=== PATIENT | male | born 1955 | race Caucasian/White ===

== ENCOUNTER 2019-04-04 10:33 | Inpatient (IN) | payer OTHER, MEDICARE ==
[~2019-04-04] VITALS: Ht 185.4 cm; Wt 66.4 kg
[2019-04-04] VITALS (7 sets, daily range): BP systolic 82–103; BP diastolic 50–67
[2019-04-04] MEDS ORDERED: NS IV 1000 ML 1,000 ML ONE (10:38)
[2019-04-04] MEDS ORDERED: NS IV 1000 ML 1,000 ML IV ONE ×3 (10:40→13:18)
[2019-04-04] MEDS ORDERED: RT-ALBUTEROL SULF 2.5 MG/3 ML PRE-MIX VIAL INH STA (10:40)
[2019-04-04 10:50] LABS: BASOPHILS # (AUTO) 0.1 10^3/uL (0.0-0.1); BASOPHILS % (AUTO) 0 % (0-10); EOSINOPHILS # (AUTO) 0.2 10^3/uL (0.0-0.3); EOSINOPHILS % (AUTO) 1 % (0-10); HEMATOCRIT 45 % (40-54); HEMOGLOBIN 15.6 G/DL (13.3-17.7); LYMPHOCYTES # (AUTO) 2.1 X 10^3 (1.0-4.0); LYMPHOCYTES % (AUTO) 9 % (12-44); MEAN CORPUSCULAR HEMOGLOBIN 30 PG (25-34); MEAN CORPUSCULAR HGB CONC 35 G/DL (32-36); MEAN CORPUSCULAR VOLUME 87 FL (80-99); MEAN PLATELET VOLUME 10.9 FL (7.4-10.4); MONOCYTES # (AUTO) 1.7 X 10^3 (0.0-1.0); MONOCYTES % (AUTO) 7 % (0-12); NEUTROPHILS % (AUTO) 83 % (42-75); PLATELET COUNT 147 10^3/uL (130-400); RED CELL DISTRIBUTION WIDTH 13.1 % (10.0-14.5)
[2019-04-04 11:12] LABS: ABG BASE EXCESS -0.5 MMOL/L (-2.5-2.5); ABG OXYGEN SATURATION 98 % (94-100); ABG PCO2 44 MMHG (35-45); ABG PH 7.36 (7.37-7.43); ABG PO2 103 MMHG (79-93); ABG TCO2 25.4 MMOL/L (21.0-31.0); ALLENS TEST YES-POS; INSPIRED O2 10 OXYMASK; PATIENT TEMP 99.7; VENTILATOR NO
[2019-04-04 11:13] LABS: ALANINE AMINOTRANSFERASE 14 U/L (0-55); ALBUMIN 4.2 GM/DL (3.2-4.5); ALKALINE PHOSPHATASE 53 U/L (40-136); BAND NEUTROPHILS 4 %; BASOPHILS % (MANUAL) 0 %; BUN/CREATININE RATIO 11; CALCIUM 9.4 MG/DL (8.5-10.1); CARBON DIOXIDE 28 MMOL/L (21-32); CHLORIDE 102 MMOL/L (98-107); CREATININE SERUM 0.85 MG/DL (0.60-1.30); EOSINOPHILS % (MANUAL) 1 %; GFR ESTIMATED > 60; GLUCOSE 116 MG/DL (70-105); LYMPHOCYTES % (MANUAL) 13 %; MONOCYTES % (MANUAL) 4 %; NEUTROPHILS % (MANUAL) 78 %; POTASSIUM 4.3 MMOL/L (3.6-5.0); RBC MORPH NORMAL; SODIUM 136 MMOL/L (135-145); TOTAL PROTEIN 6.9 GM/DL (6.4-8.2)
[2019-04-04] MEDS ORDERED: BUDE10.22 INH (11:18)
[2019-04-04] MEDS ORDERED: ALBU18HF2 INH (11:18)
--- NOTE | 2019-04-04 11:18 | ED General ---
General Chief Complaint: Respiratory Problems Stated Complaint: SOA Nursing Triage Note: PT BROUGHT IN BY [facility] FROM HOME WITH COMPLAINT OF SOA. PER EMS, PT WAS 87% ON ROOM AIR, PT GIVEN DUONBED IN ROUTE AND PLACED ON 4L. PT STATES HE HAS COPD AND STARTED FEELING SOA LAST NIGHT. Nursing Sepsis Screen: No Definite Risk Source of Information: Patient Exam Limitations: No Limitations History of Present Illness Date Seen by Provider: April 04, 2019 Time Seen by Provider: 10:35 Initial Comments Here with report of shortness of air over the last day. Worse today and does have history of COPD. Placed on 4 L via nasal cannula by EMS and that did improve his O2 sat from 87% to above 90%. EMS did give DuoNeb in route which helped some as well. [place] hot overnight like he had a fever. Denies nausea or vomiting. Denies chest pain other than the tightness with breathing. Timing/Duration: 12-24 Hours Severity: Moderate, Severe Associated Systoms: No Chest Pain; Cough, Fever/Chills; No Nausea/Vomiting; Shortness of Air, Weakness Allergies and Home Medications Allergies Coded Allergies: No Known Drug Allergies (Unverified , 04/04/19) Patient Home Medication List Home Medication List Reviewed: Yes Review of Systems Review of Systems Constitutional: see HPI; No chills; fever, weakness EENTM: no symptoms reported Respiratory: see HPI, cough, dyspnea on exertion, short of breath, wheezing Cardiovascular: No chest pain, No edema Gastrointestinal: No abdominal pain, No nausea, No vomiting Genitourinary: no symptoms reported Musculoskeletal: no symptoms reported Skin: no symptoms reported All Other Systems Reviewed Negative Unless Noted: Yes Past Yjgkleb-Pqtvnf-Mwixvq Hx Patient Social History Alcohol Use: Denies Use Recreational Drug Use: No Smoking Status: Current Everyday Smoker Type Used: Cigarettes Recent Foreign Travel: No Contact w/Someone Who Travel: No Recent Infectious Disease Expo: No Recent Hopitalizations: No Immunizations Up To Date Tetanus Booster (TDap): Unknown PED Vaccines UTD: Yes Seasonal Allergies Seasonal Allergies: No Past Medical History Surgeries: Yes (COLLAPSED LUNG) Respiratory: Yes COPD Cardiac: No Neurological: No Genitourinary: No Gastrointestinal: No Musculoskeletal: No Endocrine: No HEENT: No Cancer: No Psychosocial: No Integumentary: No Blood Disorders: No Family Medical History Reviewed Nursing Family Hx No Pertinent Family Hx Physical Exam-Suspected Sepsis Physical Exam Vital Signs Vital Signs - First Documented 04/04/19 10:33 Temp 99.7 Pulse 101 Resp 14 B/P (MAP) 110/77 (88) Pulse Ox 89 O2 Delivery Nasal Cannula O2 Flow Rate 4.00 Capillary Refill : Less Than 3 Seconds Blood Pressure Mean: 88 Height, Weight, BMI Height: 6'1.00" Weight: 130lbs. oz. 58.334940yp; BMI Method:Stated General Appearance: WD/WN, Moderate Distress (respiratory) HEENT: PERRL/EOMI, Pharynx Normal Neck: Non Tender, Supple Respiratory: Accessory Muscle Use, Decreased Breath Sounds, Respiratory Distress, Wheezing Cardiovascular: Normal Peripheral Pulses, Tachycardia Gastrointestinal: Non Tender, Soft Back: Normal Inspection, No CVA Tenderness, No Vertebral Tenderness Extremity: Normal Range of Motion, Non Tender Neurologic/Psychiatric: Alert, Oriented x3 Skin: normal color, warm/dry Focused Exam Lactate Level 04/04/19 10:34: Lactic Acid Level 1.15 Lactic Acid Level Laboratory Tests Test 04/04/19 10:34 Lactic Acid Level 1.15 MMOL/L (0.50-2.00) Progress/Results/Core Measures Suspected Sepsis Recent Fever Within 48 Hours: No Infection Criteria Present: None New/Unexplained Altered Menta: No Sepsis Screen: No Definite Risk SIRS Temperature:99.7 Pulse: 101 Respiratory Rate: 14 Laboratory Tests 04/04/19 10:34: White Blood Count 23.0H Blood Pressure 110 /77 Mean: 88 04/04/19 10:34: Lactic Acid Level 1.15 Laboratory Tests 04/04/19 10:34: Creatinine 0.85, Platelet Count 147, Total Bilirubin 1.0 04/04/19 11:18: INR Comment 1.1 Results/Orders Lab Results Laboratory Tests Test 04/04/19 10:34 04/04/19 10:45 04/04/19 11:18 04/04/19 12:54 Range/Units White Blood Count 23.0 H 4.3-11.0 10^3/uL Red Blood Count 5.14 4.35-5.85 10^6/uL Hemoglobin 15.6 13.3-17.7 G/DL Hematocrit 45 40-54 % Mean Corpuscular Volume 87 80-99 FL Mean Corpuscular Hemoglobin 30 25-34 PG Mean Corpuscular Hemoglobin Concent 35 32-36 G/DL Red Cell Distribution Width 13.1 10.0-14.5 % Platelet Count 147 130-400 10^3/uL Mean Platelet Volume 10.9 H 7.4-10.4 FL Neutrophils (%) (Auto) 83 H 42-75 % Lymphocytes (%) (Auto) 9 L 12-44 % Monocytes (%) (Auto) 7 0-12 % Eosinophils (%) (Auto) 1 0-10 % Basophils (%) (Auto) 0 0-10 % Neutrophils # (Auto) 19.0 H 1.8-7.8 X 10^3 Lymphocytes # (Auto) 2.1 1.0-4.0 X 10^3 Monocytes # (Auto) 1.7 H 0.0-1.0 X 10^3 Eosinophils # (Auto) 0.2 0.0-0.3 10^3/uL Basophils # (Auto) 0.1 0.0-0.1 10^3/uL Neutrophils % (Manual) 78 % Lymphocytes % (Manual) 13 % Monocytes % (Manual) 4 % Eosinophils % (Manual) 1 % Basophils % (Manual) 0 % Band Neutrophils 4 % Blood Morphology Comment NORMAL Sodium Level 136 135-145 MMOL/L Potassium Level 4.3 3.6-5.0 MMOL/L Chloride Level 102 98-107 MMOL/L Carbon Dioxide Level 28 21-32 MMOL/L Anion Gap 6 5-14 MMOL/L Blood Urea Nitrogen 9 7-18 MG/DL Creatinine 0.85 0.60-1.30 MG/DL Estimat Glomerular Filtration Rate > 60 BUN/Creatinine Ratio 11 Glucose Level 116 H 70-105 MG/DL Lactic Acid Level 1.15 0.50-2.00 MMOL/L Calcium Level 9.4 8.5-10.1 MG/DL Corrected Calcium 9.2 8.5-10.1 MG/DL Total Bilirubin 1.0 0.1-1.0 MG/DL Aspartate Amino Transf (AST/SGOT) 18 5-34 U/L Alanine Aminotransferase (ALT/SGPT) 14 0-55 U/L Alkaline Phosphatase 53 40-136 U/L Total Protein 6.9 6.4-8.2 GM/DL Albumin 4.2 3.2-4.5 GM/DL Blood Gas Puncture Site RT RAD Blood Gas Patient Temperature 99.7 Arterial Blood pH 7.36 L 7.37-7.43 Arterial Blood Partial Pressure CO2 44 35-45 MMHG Arterial Blood Partial Pressure O2 103 H 79-93 MMHG Arterial Blood HCO3 24 23-27 MMOL/L Arterial Blood Total CO2 25.4 21.0-31.0 MMOL/L Arterial Blood Oxygen Saturation 98 94-100 % Arterial Blood Base Excess -0.5 -2.5-2.5 MMOL/L Epifanio Test YES-POS Blood Gas Ventilator Setting NO Blood Gas Inspired Oxygen 10 OXYMASK Prothrombin Time 15.0 H 12.2-14.7 SEC INR Comment 1.1 0.8-1.4 Activated Partial Thromboplast Time 27 24-35 SEC Urine Color YELLOW Urine Clarity CLEAR Urine pH 7 5-9 Urine Specific [place] 1.005 L 1.016-1.022 Urine Protein NEGATIVE NEGATIVE Urine Glucose (UA) NEGATIVE NEGATIVE Urine Ketones NEGATIVE NEGATIVE Urine Nitrite NEGATIVE NEGATIVE Urine Bilirubin NEGATIVE NEGATIVE Urine Urobilinogen NORMAL NORMAL MG/DL Urine Leukocyte Esterase NEGATIVE NEGATIVE Urine RBC (Auto) NEGATIVE NEGATIVE Urine RBC NONE /HPF Urine WBC NONE /HPF Urine Squamous Epithelial Cells RARE /HPF Urine Crystals NONE /LPF Urine Bacteria NEGATIVE /HPF Urine Casts NONE /LPF Urine Mucus NEGATIVE /LPF Urine Culture Indicated NO My Orders Orders - JOVANNY LONG MD Albuterol Pre-Mix Nebs (Rt) (Proventil (04/04/19 10:40) Cbc With Automated Diff (04/04/19 10:40) Comprehensive Metabolic Panel (04/04/19 10:40) Blood Culture (04/04/19 10:40) Sputum Culture (04/04/19 10:40) Urinalysis (04/04/19 10:40) Urine Culture (04/04/19 10:40) Protime With Inr (04/04/19 10:40) Partial Thromboplastin Time (04/04/19 10:40) Chest 1 View, Ap/Pa Only (04/04/19 10:40) Ed Iv/Invasive Line Start (04/04/19 10:40) Vital Signs Adult Sepsis Patie Q15M (04/04/19 10:40) O2 (04/04/19 10:40) Remove Rings In Anticipation O (04/04/19 10:40) Lactic Acid Analyzer (04/04/19 10:40) Ns Iv 1000 Ml (Sodium Chloride 0.9%) (04/04/19 10:40) Svn Small Volume Nebulizer (04/04/19 10:40) Ns Iv 1000 Ml (Sodium Chloride 0.9%) (04/04/19 10:38) Arterial Blood Gas (04/04/19 10:45) Manual Differential (04/04/19 10:34) Ns Iv 1000 Ml (Sodium Chloride 0.9%) (04/04/19 10:56) Arterial Blood Draw (04/04/19 11:15) Methylprednisolone Sod Succ (Solu-Medrol (04/04/19 13:15) Cefepime Injection (Maxipime Injection) (04/04/19 13:30) Ed Iv/Invasive Line Start (04/04/19 13:18) Ns Iv 1000 Ml (Sodium Chloride 0.9%) (04/04/19 13:18) Medications Given in ED Current Medications Medications Dose Ordered Sig/Antwan Route Start Time Stop Time Status Last Admin Dose Admin Cefepime HCl 1000 mg/Sterile Water 10 ml @ 200 mls/hr ONCE ONCE IV 04/04/19 13:30 04/04/19 13:32 DC 04/04/19 13:44 200 MLS/HR Sodium Chloride 1,000 ml @ 0 mls/hr Q0M ONCE IV 04/04/19 10:40 04/04/19 10:42 DC 04/04/19 10:45 1,000 MLS/HR Sodium Chloride 1,000 ml @ 0 mls/hr Q0M ONCE IV 04/04/19 10:56 04/04/19 10:57 DC 04/04/19 10:59 1,000 MLS/HR Sodium Chloride 1,000 ml @ 250 mls/hr Q4H ONCE IV 04/04/19 13:18 04/04/19 17:17 04/04/19 13:43 250 MLS/HR Vital Signs/I&O 04/04/19 04/04/19 04/04/19 04/04/19 10:33 10:33 11:10 11:15 Temp 99.7 Pulse 101 Resp 14 B/P (MAP) 110/77 (88) Pulse Ox 89 89 99 100 O2 Delivery Nasal Cannula Nasal Cannula OxyMask Simple Mask O2 Flow Rate 4.00 4.00 10.00 10.00 04/04/19 11:24 Pulse Ox 99 O2 Delivery OxyMask O2 Flow Rate 10.00 Capillary Refill : Less Than 3 Seconds Blood Pressure Mean: 88 Progress Note : Progress Note Seen and evaluated. Sepsis protocol initiated. Those saline 1 L bolus ordered. Patient did have episode of hypotension with blood pressure in the high 80s and 90 systolic. 30 mL/kg bolus initiated and this will be approximately 1800 mL current weight of 58 kg and will be exceeded with 2 L bolus. Albuterol neb 3 ordered. ABG ordered. Monitor patient. Blood pressure improved after fluids. COPD noted on x-ray but white count is significantly elevated. I do have concerns about occult pneumonia and will treat as such. I discussed the case with Dr. Granda at 1315 and she accepts patient for admission, inpatient status. We will initiate cefepime IV. He'll continue that. Solu-Medrol 125 mg IV also ordered. I did discuss the case with Dr. Guajardo at 1318 and he accepts patient in consult. Patient to be admitted to the ICU. Blood pressure is improved to high 90s to low 100s over 60s. Normal saline at 250 an hour initiated as per sepsis protocol. I discussed findings and concerns with the patient and he agrees with plan. Admit, inpatient status. 1350: Patient has improved oxygenation and his converted to nasal cannula at 4 L. I attest to focused exam at this time. Diagnostic Imaging Diagonstic Imaging: Xray Plain Films/CT/US/NM/MRI: chest Comments NAME: SARAHI MCCLAIN [facility] REC#: [id number] PHYSICIAN: JOVANNY LONG MD CC: XIMENA ROONEY; JOVANNY LONG MD Page 1 of 1 RADIOLOGY REPORT [facility] [place], [place] CC: XIMENA ROONEY; JOVANNY LONG MD Page 1 of 1 RADIOLOGY REPORT NAME: SARAHI MCCLAIN [facility] REC#: [id number] PT STATUS: REG ER : 1955 PHYSICIAN: JOVANNY LONG MD ADMIT DATE: 04/04/19/ER Signed Date of Exam: 04/04/19 CHEST 1 VIEW, AP/PA ONLY INDICATION: Shortness of breath FINDINGS: There is severe COPD. There is old rib deformities. Symmetrical air trapping is present. No alveolar consolidation. The heart size within normal limits. No vascular distention. IMPRESSION: Severe COPD and old rib deformities. No other significant finding. Dictated by: Dictated on workstation # [id number] Dict: 04/04/19 1127 Trans: 04/04/19 1142 Interpreted by: XIMENA ROONEY Electronically signed by: XIMENA ROONEY 04/04/19 1142 Departure Communication (Admissions) Time/Spoke to Admitting Phy: 13:15 Time/Spoke to Consulting Phy: 13:18 Impression Primary Impression: Pneumonia Qualified Codes: J18.9 - Pneumonia, unspecified organism Additional Impressions: COPD exacerbation Severe sepsis Disposition: ADMITTED INPATIENT Condition: Stable Admissions Decision to Admit Reason: Admit from ER (General) Decision to Admit/Date: April 04, 2019 Time/Decision to Admit Time: 13:15 Departure-Patient Inst. Referrals: HARISH PLATT (PCP) Primary Care Physician JOVANNY LONG MD April 04, 2019 11:18
--- NOTE | 2019-04-04 11:35 | Diagnostic Imaging Report ---
INDICATION: Shortness of breath FINDINGS: There is severe COPD. There is old rib deformities. Symmetrical air trapping is present. No alveolar consolidation. The heart size within normal limits. No vascular distention. IMPRESSION: Severe COPD and old rib deformities. No other significant finding. Dictated by: Dictated on workstation # [id number]
[2019-04-04 11:43] LABS: INR 1.1 (0.8-1.4)
[2019-04-04 13:01] LABS: BILIRUBIN,URINE NEGATIVE (NEGATIVE); CLARITY,URINE CLEAR; COLOR,URINE YELLOW; GLUCOSE, URINE (UA) NEGATIVE (NEGATIVE); KETONES,URINE NEGATIVE (NEGATIVE); LEUKOCYTE ESTERASE ,URINE NEGATIVE (NEGATIVE); NITRITE,URINE NEGATIVE (NEGATIVE); PH,URINE 7 (5-9); PROTEIN,URINE NEGATIVE (NEGATIVE); UROBILINOGEN,URINE NORMAL (NORMAL)
[2019-04-04 13:09] LABS: BACTERIA,URINE NEGATIVE /HPF; SQUAMOUS EPITHELIAL CELL,UR RARE /HPF
[2019-04-04] MEDS ORDERED: methylPREDNISolone 125 MG (Solu-MEDROL) VIAL IV STA (13:15)
[2019-04-04] MEDS ORDERED: CEFEPIME INJECTION 1,000 MG in WATER (STERILE) FOR INJECTION 10 ML IV ONE (13:30)
[2019-04-04] MEDS ORDERED: NS IV 1000 ML 1,000 ML IV SCH (15:06)
[2019-04-04] MEDS ORDERED: NOREPINEPHRINE 4 MG in NS (IVPB) 250 ML IV SCH ×2 (15:06→15:08)
[2019-04-04] MEDS ORDERED: NS IV 1000 ML 1,769.01 ML IV ONE ×2 (15:15)
[2019-04-04] MEDS ORDERED: CATHETER FLUSH 10 ML SYR IV PRN (15:15)
[2019-04-04] MEDS ORDERED: ONDANSETRON 4 MG/2 ML (SDV) Z0FRAN IV PRN (15:15)
[2019-04-04] MEDS: NS IV 1000 ML 1,000 ML IV SCH ×2 (15:24→17:35)
--- NOTE | 2019-04-04 15:44 | Pulmonary Consultation ---
History of Present Illness History of Present Illness Date of Consultation 04/04/19 15:39 Time Seen by Provider: 15:39 Date of Admission History of Present Illness 63yo with hx of COPD presented to ED via EMS secondary to worsening SOB. Pt was found to have hypoxia with Sp02 of 87% and he was placed on 4 liters of oxygen. Sp02 did improve to 90% with oxygen. No N/V, abd pain, or CP. Allergies and Home Medications Allergies Coded Allergies: No Known Drug Allergies (Unverified , 04/04/19) Home Medications Albuterol Sulfate 18 Gm Hfa.aer.ad, 2 PUFF INH Q4H PRN for SHORTNESS OF BREATH, (Reported) Budesonide/Formoterol Fumarate 10.2 Gm Hfa.aer.ad, 2 PUFF INH BID, (Reported) Past Vcnvvnw-Hzskmr-Whptol Hx Patient Social History Alcohol Use: Denies Use Recreational Drug Use: No Smoking Status: Current Everyday Smoker Type Used: Cigarettes Recent Foreign Travel: No Contact w/Someone Who Travel: No Recent Infectious Disease Expo: No Recent Hopitalizations: No Immunizations Up To Date Tetanus Booster (TDap): Unknown PED Vaccines UTD: Yes Date of Pneumonia Vaccine: Dec 05, 2017 Seasonal Allergies Seasonal Allergies: No Past Medical History Surgeries: Yes (COLLAPSED LUNG) Respiratory: Yes COPD Cardiac: No Neurological: No Genitourinary: No Gastrointestinal: No Musculoskeletal: No Endocrine: No HEENT: No Cancer: No Psychosocial: No Integumentary: No Blood Disorders: No Family Medical History Reviewed Nursing Family Hx No Pertinent Family Hx Review of Systems Time Seen by Provider: 15:51 Constitutional: Weakness, Malaise; No: Fever ENT: Nose congestion Respiratory: Cough, Dry, Shortness of breath, SOB with excertion, Wheezing; No: Hemoptysis Cardiovascular: No: Chest Pain, Palpitations, Paroxysmal Noc. Dyspnea Sepsis Event Evaluation Height, Weight, BMI Height: 6'1.00" Weight: 130lbs. 0.0oz. 58.509563ok; 17.2 BMI Method:Stated Exam Exam Vital Signs Date Time Temp Pulse Resp B/P (MAP) Pulse Ox O2 Delivery O2 Flow Rate FiO2 04/04/19 15:03 74 04/04/19 15:00 99 Nasal Cannula 4.00 04/04/19 15:00 73 7 100/67 (78) 98 Room Air 04/04/19 14:45 76 17 100/60 (73) Room Air 04/04/19 14:34 82 11 107/64 (78) 99 Nasal Cannula 4.00 04/04/19 11:24 99 OxyMask 10.00 04/04/19 11:15 100 Simple Mask 10.00 04/04/19 11:10 99 OxyMask 10.00 04/04/19 10:33 99.7 101 14 110/77 (88) 89 Nasal Cannula 4.00 04/04/19 10:33 89 Nasal Cannula 4.00 Height & Weight Height: 6'1.00" Weight: 130lbs. 0.0oz. 58.412671ku; 17.2 BMI Method:Stated General Appearance: WD/WN, Moderate Distress (respiratory) HEENT: PERRL/EOMI, Pharynx Normal Neck: Non Tender, Supple Respiratory: Accessory Muscle Use, Decreased Breath Sounds, Respiratory Distress, Wheezing Cardiovascular: Normal Peripheral Pulses, Tachycardia Capillary Refill: Less Than 3 Seconds Extremity: Normal Range of Motion, Non Tender Neurologic/Psychiatric: Alert, Oriented x3 Results Lab Laboratory Tests 04/04/19 10:34 Assessment/Plan Assessment/Plan COPDAE with hypoxia -Start DUonebs, -Solumedrol -Oxygen -MRSA swab -ABG C02 is 44 Leukocytosis r/o infection -Otero cultures -CXR is neg - UA - is neg -Continue Cefepime Hypotension -IMproved with IVF -Continue to monitor MARKO TINOCO DO April 04, 2019 15:44
[2019-04-04] MEDS: methylPREDNISolone 40 MG/ML (Solu-MEDROL) VIAL IV SCH (17:37)
[2019-04-04] MEDS ORDERED: methylPREDNISolone 125 MG (Solu-MEDROL) VIAL IV SCH ×2 (18:00)
[2019-04-04] MEDS: RT-ALBUTEROL/IPRATROPIUM 3 ML (DUONEB) VIAL INH SCH ×2 (18:29→21:35)
--- NOTE | 2019-04-04 18:40 | NUR ---
PT ARRIVED TO ROOM AT 1840. THIS RN TO RESUME CARE. THIS RN AGREES WITH PREVIOUS NURSES ASSESSMENT.
[2019-04-04] MEDS ORDERED: CEFEPIME 1 GM (MAXIPIME) VIAL ONE (20:31)
[2019-04-04] MEDS ORDERED: WATER (STERILE) FOR INJECTION 10 ML ONE (20:31)
[2019-04-04] MEDS: CEFEPIME 1,000 MG/SWFI 10 ML IV PUSH IV SCH ×2 (20:47)
[2019-04-04] MEDS: MONTELUKAST 10 MG (SINGULAIR) TAB PO SCH (20:47)
[2019-04-05] MEDS: methylPREDNISolone 40 MG/ML (Solu-MEDROL) VIAL IV SCH ×5 (01:38→23:40)
[2019-04-05] MEDS: NS IV 1000 ML 1,000 ML IV SCH ×5 (01:41→23:48)
[2019-04-05] MEDS ORDERED: CEFEPIME 1 GM (MAXIPIME) VIAL ONE (02:10)
[2019-04-05] MEDS ORDERED: WATER (STERILE) FOR INJECTION 10 ML ONE (02:11)
[2019-04-05] MEDS: RT-ALBUTEROL/IPRATROPIUM 3 ML (DUONEB) VIAL INH SCH ×6 (02:15→22:40)
[2019-04-05] MEDS: CEFEPIME 1,000 MG/SWFI 10 ML IV PUSH IV SCH ×8 (02:19→20:13)
[2019-04-05 04:38] VITALS: BP 96/50
[2019-04-05 05:53] LABS: BASOPHILS % (AUTO) 0 % (0-10); EOSINOPHILS % (AUTO) 0 % (0-10); HEMATOCRIT 37 % (40-54); HEMOGLOBIN 12.6 G/DL (13.3-17.7); LYMPHOCYTES # (AUTO) 0.6 X 10^3 (1.0-4.0); LYMPHOCYTES % (AUTO) 5 % (12-44); MEAN CORPUSCULAR HEMOGLOBIN 30 PG (25-34); MEAN CORPUSCULAR HGB CONC 34 G/DL (32-36); MEAN CORPUSCULAR VOLUME 89 FL (80-99); MEAN PLATELET VOLUME 11.4 FL (7.4-10.4); MONOCYTES # (AUTO) 0.3 X 10^3 (0.0-1.0); MONOCYTES % (AUTO) 2 % (0-12); NEUTROPHILS # (AUTO) 11.4 X 10^3 (1.8-7.8); NEUTROPHILS % (AUTO) 93 % (42-75); PLATELET COUNT 139 10^3/uL (130-400); RED CELL DISTRIBUTION WIDTH 13.3 % (10.0-14.5); WHITE BLOOD COUNT 12.2 10^3/uL (4.3-11.0)
[2019-04-05 06:22] LABS: BUN/CREATININE RATIO 18; CALCIUM 8.4 MG/DL (8.5-10.1); CARBON DIOXIDE 22 MMOL/L (21-32); CHLORIDE 109 MMOL/L (98-107); CREATININE SERUM 0.74 MG/DL (0.60-1.30); GFR ESTIMATED > 60; GLUCOSE 170 MG/DL (70-105); MAGNESIUM 1.7 MG/DL (1.8-2.4); PHOSPHORUS 2.3 MG/DL (2.3-4.7); POTASSIUM 4.2 MMOL/L (3.6-5.0); SODIUM 140 MMOL/L (135-145)
--- NOTE | 2019-04-05 06:47 | Pulmonary Progress Note ---
Subjective Time Seen by a Provider: 06:46 Subjective/Events-last exam Pt complains of SOB. Sepsis Event Evaluation Height, Weight, BMI Height: 6'1.00" Weight: 135lbs. 4.0oz. 61.855187pf; 17.2 BMI Method:Stated Focused Exam Lactate Level 04/04/19 10:34: Lactic Acid Level 1.15 Exam Exam Vital Signs Date Time Temp Pulse Resp B/P (MAP) Pulse Ox O2 Delivery O2 Flow Rate FiO2 04/05/19 04:38 97.8 55 16 96/50 (65) 98 Nasal Cannula 3.00 04/05/19 02:15 94 Nasal Cannula 3.00 04/04/19 23:43 97.2 50 16 82/50 (61) 98 Nasal Cannula 3.00 04/04/19 21:35 94 Nasal Cannula 3.00 04/04/19 20:00 99 Nasal Cannula 4.00 04/04/19 19:20 97.5 62 18 92/54 (67) 98 Nasal Cannula 3.00 04/04/19 18:29 100 Nasal Cannula 5.00 04/04/19 18:00 62 14 99/65 (76) 99 Nasal Cannula 3.00 04/04/19 17:00 64 14 99/63 (75) 100 Nasal Cannula 3.00 04/04/19 16:00 99 Nasal Cannula 4.00 04/04/19 16:00 72 15 103/64 (77) 100 Nasal Cannula 3.00 04/04/19 16:00 98.2 04/04/19 15:03 74 04/04/19 15:00 99 Nasal Cannula 4.00 04/04/19 15:00 73 7 100/67 (78) 98 Nasal Cannula 3.00 04/04/19 14:45 76 17 100/60 (73) Nasal Cannula 3.00 04/04/19 14:34 82 11 107/64 (78) 99 Nasal Cannula 4.00 04/04/19 11:24 99 OxyMask 10.00 04/04/19 11:15 100 Simple Mask 10.00 04/04/19 11:10 99 OxyMask 10.00 04/04/19 10:33 99.7 101 14 110/77 (88) 89 Nasal Cannula 4.00 04/04/19 10:33 89 Nasal Cannula 4.00 I & O 04/05/19 07:00 Intake Total 4581 ml Output Total 1000 ml Balance 3581 ml Height & Weight Height: 6'1.00" Weight: 135lbs. 4.0oz. 61.734657of; 17.2 BMI Method:Stated General Appearance: WD/WN, Mild Distress HEENT: PERRL/EOMI, Pharynx Normal Neck: Non Tender, Supple Respiratory: Accessory Muscle Use, Decreased Breath Sounds, Respiratory Distress, Wheezing Cardiovascular: Normal Peripheral Pulses, Tachycardia Capillary Refill: Less Than 3 Seconds Extremity: Normal Range of Motion, Non Tender Neurologic/Psychiatric: Alert, Oriented x3 Skin: Normal Color, Warm/Dry Lymphatic: No Adenopathy Results Lab Laboratory Tests 04/04/19 10:34 04/05/19 05:15 Assessment/Plan Assessment/Plan COPDAE with hypoxia -Start Duonebs, -Solumedrol -Oxygen -MRSA swab -ABG C02 is 44 -Check CT of chest r/o mass Leukocytosis r/o infection -Otero cultures -CXR is neg - UA - is neg -Continue Cefepime for now \\ MARKO TINOCO DO April 05, 2019 06:47
[2019-04-05] MEDS: MAGNESIUM 1 GM/100 ML IVPB 100 ML IV SCH ×4 (07:31→11:33)
[2019-04-05 08:00] VITALS: BP 91/53
--- NOTE | 2019-04-05 08:01 | Diagnostic Imaging Report ---
INDICATION: Followup pneumonia. COMPARISON: 04/04/2019 FINDINGS: Single frontal radiographic view of the chest was obtained and shows background of advanced COPD changes. There is no new focal alveolar consolidation, large effusion, nor pneumothorax. Cardiac silhouette and pulmonary vasculature within normal limits. Bony structures show no gross acute abnormalities. IMPRESSION: 1. Persistent background of advanced COPD changes, but no evidence of new infiltrate or failure. Dictated by: Dictated on workstation # [id number]
[2019-04-05] MEDS: LORATADINE (CLARITIN) 10 MG TAB PO SCH (08:58)
[2019-04-05] MEDS ORDERED: HOLD METFORMIN - RECEIVED CONTRAST 20 ML VIAL IV SCH (09:00)
[2019-04-05] MEDS ORDERED: NS 100 ML (IVPB) BAG IV ONE (09:00)
[2019-04-05] MEDS ORDERED: IOHEXOL 350 MG/ML 100 ML (OMNIPAQUE 350) VIAL IV ONE (09:00)
--- NOTE | 2019-04-05 09:43 | Diagnostic Imaging Report ---
PROCEDURE: CT chest with contrast only. TECHNIQUE: Multiple contiguous axial images were obtained through the chest after administration of intravenous contrast. Auto Exposure Controls were utilized during the CT exam to meet ALARA standards for radiation dose reduction. INDICATION: Pneumonia and shortness of air. COMPARISON: No prior CT studies are available for comparison. FINDINGS: No axillary, hilar or mediastinal lymphadenopathy is detected. No pericardial fluid is seen. There are trace bilateral pleural effusions. Emphysematous changes are identified throughout both lungs. There is an area of minimal infiltrate versus scarring or atelectasis in the right upper lobe posteriorly as well as the medial aspect of the right middle lobe. There appears to be some infiltrate and consolidation in the posterior right lower lobe and to a lesser degree in the posterior left lower lobe. No discrete mass is identified. Multiple old healed right-sided rib fracture deformities are seen. Upper abdomen is unremarkable. IMPRESSION: Emphysematous changes, as described. There are some infiltrates of the bilateral lower lobes as well as trace bilateral pleural effusions. Dictated by: Dictated on workstation # [id number]
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
[2019-04-05 12:00] VITALS: BP 98/45
[2019-04-05 16:05] VITALS: BP 104/55
[2019-04-05 19:30] VITALS: BP 94/55
[2019-04-05] MEDS: MONTELUKAST 10 MG (SINGULAIR) TAB PO SCH (20:08)
[2019-04-06] VITALS: BP 92/52
[2019-04-06] MEDS: RT-ALBUTEROL/IPRATROPIUM 3 ML (DUONEB) VIAL INH SCH ×6 (02:37→22:07)
[2019-04-06] MEDS: CEFEPIME 1,000 MG/SWFI 10 ML IV PUSH IV SCH ×8 (03:32→20:32)
[2019-04-06 04:00] VITALS: BP 84/51
[2019-04-06 04:37] LABS: BASOPHILS % (AUTO) 0 % (0-10); EOSINOPHILS % (AUTO) 0 % (0-10); HEMATOCRIT 34 % (40-54); HEMOGLOBIN 11.7 G/DL (13.3-17.7); LYMPHOCYTES # (AUTO) 0.6 X 10^3 (1.0-4.0); LYMPHOCYTES % (AUTO) 3 % (12-44); MEAN CORPUSCULAR HEMOGLOBIN 31 PG (25-34); MEAN CORPUSCULAR HGB CONC 35 G/DL (32-36); MEAN CORPUSCULAR VOLUME 89 FL (80-99); MEAN PLATELET VOLUME 11.3 FL (7.4-10.4); MONOCYTES # (AUTO) 0.5 X 10^3 (0.0-1.0); MONOCYTES % (AUTO) 2 % (0-12); NEUTROPHILS # (AUTO) 20.2 X 10^3 (1.8-7.8); NEUTROPHILS % (AUTO) 95 % (42-75); PLATELET COUNT 140 10^3/uL (130-400); RED CELL DISTRIBUTION WIDTH 12.9 % (10.0-14.5); WHITE BLOOD COUNT 21.3 10^3/uL (4.3-11.0)
[2019-04-06 04:53] LABS: BUN/CREATININE RATIO 23; CALCIUM 8.4 MG/DL (8.5-10.1); CARBON DIOXIDE 24 MMOL/L (21-32); CHLORIDE 110 MMOL/L (98-107); GFR ESTIMATED > 60; GLUCOSE 174 MG/DL (70-105); PHOSPHORUS 2.4 MG/DL (2.3-4.7); POTASSIUM 4.4 MMOL/L (3.6-5.0); SODIUM 137 MMOL/L (135-145)
[2019-04-06] MEDS: methylPREDNISolone 40 MG/ML (Solu-MEDROL) VIAL IV SCH (05:30)
--- NOTE | 2019-04-06 06:14 | Pulmonary Progress Note ---
Subjective Time Seen by a Provider: 06:14 Subjective/Events-last exam Persistent SOB. Sepsis Event Evaluation Height, Weight, BMI Height: 6'1.00" Weight: 135lbs. 4.0oz. 61.908021fu; 17.2 BMI Method:Stated Focused Exam Lactate Level 04/04/19 10:34: Lactic Acid Level 1.15 Exam Exam Vital Signs Date Time Temp Pulse Resp B/P (MAP) Pulse Ox O2 Delivery O2 Flow Rate FiO2 04/06/19 04:00 98.3 55 18 84/51 (62) 97 Nasal Cannula 2.50 04/06/19 02:37 97 Nasal Cannula 2.00 04/06/19 00:00 98.3 70 18 92/52 (65) 97 Nasal Cannula 2.50 04/05/19 22:40 98 Nasal Cannula 2.00 04/05/19 20:05 Nasal Cannula 1.00 04/05/19 19:30 99.0 69 20 94/55 (68) 96 Nasal Cannula 2.50 04/05/19 18:37 96 Nasal Cannula 2.00 04/05/19 16:05 98.4 69 20 104/55 (71) 96 Nasal Cannula 2.50 04/05/19 13:59 94 Nasal Cannula 2.00 04/05/19 12:00 98.3 56 18 98/45 (62) 97 Nasal Cannula 2.00 04/05/19 09:59 96 Nasal Cannula 2.00 04/05/19 09:00 Nasal Cannula 1.00 04/05/19 08:00 98.2 62 20 91/53 (66) 93 Nasal Cannula 1.00 04/05/19 06:41 94 Nasal Cannula 1.00 I & O 04/06/19 07:00 Intake Total 4380 ml Output Total 2525 ml Balance 1855 ml Height & Weight Height: 6'1.00" Weight: 135lbs. 4.0oz. 61.660766xn; 17.2 BMI Method:Stated General Appearance: WD/WN, Mild Distress HEENT: PERRL/EOMI, Pharynx Normal Neck: Non Tender, Supple Respiratory: Accessory Muscle Use, Decreased Breath Sounds, Respiratory Distress, Wheezing Cardiovascular: Normal Peripheral Pulses, Tachycardia Capillary Refill: Less Than 3 Seconds Gastrointestinal: normal bowel sounds, non tender, soft Extremity: Normal Range of Motion, Non Tender Neurologic/Psychiatric: Alert, Oriented x3 Skin: Normal Color, Warm/Dry Lymphatic: No Adenopathy Results Lab Laboratory Tests 04/04/19 10:34 04/05/19 05:15 04/06/19 04:30 Assessment/Plan Assessment/Plan COPDAE with hypoxia -Contineu Duonebs, -Solumedrol -- change to prednisone 20mg -Oxygen -MRSA swab - is neg -CT of chest - reviewed -ABG C02 is 44 Pneumonia with sepsis (not severe sepsis) -Continue Cefepime -Otero cultures - UA - is neg -Continue Cefepime for now Small bilateral pleural effusions -D/C IVF -Check BNP MARKO TINOCO DO April 06, 2019 06:14
--- NOTE | 2019-04-06 06:39 | Diagnostic Imaging Report ---
INDICATION: Shortness of breath. Portable chest 3:34 AM FINDINGS: There are emphysematous changes in the lungs. Heart size and pulmonary vascularity are normal. Lungs are clear. There are no effusions or pneumothoraces. Multiple old healed rib fractures in the right thoracic cage. IMPRESSION: Severe COPD. No acute abnormality is seen. Dictated by: Dictated on workstation # [id number]
[2019-04-06] MEDS: predniSONE 20 MG TAB PO SCH (06:49)
[2019-04-06 07:26] VITALS: BP 98/55
[2019-04-06] MEDS: LORATADINE (CLARITIN) 10 MG TAB PO SCH (08:09)
--- NOTE | 2019-04-06 10:09 | Physician Query Clarification ---
PQ-Intro New Diagnosis Admission/Discharge Admission Date: April 04, 2019 at 13:30 Discharge Date: The medical record reflects the following clinical scenario: History/Risk Factors: Sepsis Pneumonia Clinical Findings: Sats 87% on room air en route per EMS on arrival 89%, pulse 101, resp 14, accessory muscle use, respiratory distress, decreased breath sounds and wheezing. Blood gases: pH 7.36, pCO2 44, pO2 103 Treatment: Given DuoNeb treatment en route, nasal cannula 4L, OxyMask 10L, IV Solu Medrol and IV Cefepime. Question: What condition best reflects the above clinical scenario? Was this condition related to sepsis? Please document a response in the Progress Noter or Discharge Summary. 1. Acute respiratory failure. 2.Acute respiratory distress only. 3. Other, with explanation of the clinical findings. 4. Clinically undetermined, no explanation for the clinical findings. PHYSICIAN RESPONSE What condition reflects above: Other, explanation/clinical finding Explanation of clincal finding Acute respiratory failure secondary to pneumonia leading to sepsis and COPD exacerbation Please remember a lack of response to the above will prompt a phone page by CDI/Coding staff. In responding to this query, please exercise your independent professional judgment. The purpose of this communication is to more accurately reflect the complexity of your patients condition. The fact that a question is asked does not imply that any particular answer is desired or expected. Thank you for your timely response to this clarification. Requestors name: Wilma Ferreira [facility] Phone # ext [phone] or [phone] THIS PHYSICIAN QUERY FORM IS A PERMANENT PART OF THE MEDICAL RECORD WILMA FERREIRA April 06, 2019 10:09 MAHESH MOORE MD April 06, 2019 15:01
--- NOTE | 2019-04-06 10:16 | Physician Query Clarification ---
PQ-Intro New Diagnosis Admission/Discharge Admission Date: April 04, 2019 at 13:30 Discharge Date: The medical record reflects the following clinical scenario: History/Risk Factors: COPD exacerbation Wheezing Clinical Findings:Per CT chest:Emphysematous changes are identified throughout lungs. Treatment:Duonebs, Solu Medrol, Oxygen. Question: What condition best reflects the above clinical scenario? Please document a response in the Progress Noter or Discharge Summary. 1. Emphysema. 2. Emphysematous changes without diagnosis of emphysema. 3. Other, with explanation of the clinical findings. 4. Clinically undetermined, no explanation for the clinical findings. PHYSICIAN RESPONSE What condition reflects above: 1 Please remember a lack of response to the above will prompt a phone page by CDI/Coding staff. In responding to this query, please exercise your independent professional judgment. The purpose of this communication is to more accurately reflect the complexity of your patients condition. The fact that a question is asked does not imply that any particular answer is desired or expected. Thank you for your timely response to this clarification. Requestors name: [ ] Phone # [ ] THIS PHYSICIAN QUERY FORM IS A PERMANENT PART OF THE MEDICAL RECORD MORRIS FERREIRA April 06, 2019 10:16 MAHESH MOORE MD April 06, 2019 15:02
[2019-04-06] MEDS ORDERED: CALCIUM CARBONATE 500 MG (TUMS) TAB.CHEW PO PRN ×2 (12:15→18:00)
--- NOTE | 2019-04-06 14:02 | Progress Note (SOAP) ---
Subjective Subjective/Events-last exam Afebrile, states he is feeling better. Continues to require supplemental oxygen. Review of Systems Date Seen by Provider: April 06, 2019 Time Seen by Provider: 10:40 Focused Exam Lactate Level 04/04/19 10:34: Lactic Acid Level 1.15 Objective Exam Last Set of Vital Signs Vital Signs Date Time Temp Pulse Resp B/P (MAP) Pulse Ox O2 Delivery O2 Flow Rate FiO2 04/06/19 10:47 94 Nasal Cannula 1.00 04/06/19 07:26 98.6 80 20 98/55 (69) Capillary Refill : Less Than 3 SecondsLess Than 3 Seconds I&O Intake and Output 04/06/19 00:00 Intake Total 5721 ml Output Total 2775 ml Balance 2946 ml Intake Oral 3390 ml IV Total 2331 ml Output Urine Total 2775 ml # Bowel Movements 1 General: Alert, No Acute Distress Lungs: Clear to Auscultation, Normal Air Movement Heart: Regular Rate, No Murmurs Neuro: Normal Speech Psych/Mental Status: Mood NL Results/Procedures Lab Laboratory Tests 04/06/19 04:30: White Blood Count 21.3H, Red Blood Count 3.82L, Hemoglobin 11.7L, Hematocrit 34L , Mean Corpuscular Volume 89, Mean Corpuscular Hemoglobin 31, Mean Corpuscular Hemoglobin Concent 35, Red Cell Distribution Width 12.9, Platelet Count 140, Mean Platelet Volume 11.3H, Neutrophils (%) (Auto) 95H, Lymphocytes (%) (Auto) 3L, Monocytes (%) (Auto) 2, Eosinophils (%) (Auto) 0, Basophils (%) (Auto) 0, Neutrophils # (Auto) 20.2H, Lymphocytes # (Auto) 0.6L, Monocytes # (Auto) 0.5, Eosinophils # (Auto) 0.0, Basophils # (Auto) 0.0, Sodium Level 137, Potassium Level 4.4, Chloride Level 110H, Carbon Dioxide Level 24, Anion Gap 3L, Blood Urea Nitrogen 18, Creatinine 0.80, Estimat Glomerular Filtration Rate > 60, BUN/Creatinine Ratio 23, Glucose Level 174H, Calcium Level 8.4L, Phosphorus Level 2.4, Magnesium Level 2.0, B-Type Natriuretic Peptide 99.7 Microbiology 04/04/19 Blood Culture - Preliminary, Resulted No growth 04/04/19 MRSA Screen - Final, Complete MRSA not isolated 04/04/19 Urine Culture - Final, Complete 3 or more isolates Radiology CXR 04/04: IMPRESSION: Severe COPD and old rib deformities. No other significant finding. CT chest 04/05: DRAFT IMPRESSION: Emphysematous changes, as described. There are some infiltrates of the bilateral lower lobes as well as trace bilateral pleural effusions. Assessment/Plan Assessment/Plan (1) Severe sepsis Status: Acute Assessment & Plan: Suspected secondary to pneumonia with leukocytosis and hypotension. WBC much improved this am. Continue cefepime. IVF at 150, BP improved. 04/06 resolved, BP improved overall. WBC increased but was started on steroids. (2) Pneumonia Status: Acute Assessment & Plan: On cefepime. CT chest 04/05 with bilateral lower infiltrates and COPD findings, no masses. Qualifiers: Qualified Codes: J18.9 - Pneumonia, unspecified organism (3) COPD exacerbation Status: Acute Assessment & Plan: IV solumedrol, duonebs. Dr. Guajardo consulted, appreciate recommendations. 04/06 changed to prednisone taper per Dr. Guajardo, continue to wean supplemental oxygen as tolerated. (4) COPD (chronic obstructive pulmonary disease) Status: Chronic (5) Subclinical hyperthyroidism Status: Acute Assessment & Plan: Follow up outpatient. (6) DVT prophylaxis Status: Acute Assessment & Plan: Enoxaparin Clinical Quality Measures DVT/VTE Risk/Contraindication: Risk Factor Score Per Nursin RFS Level Per Nursing on Admit: 4+=Very High MAHESH MOORE MD April 06, 2019 14:02
[2019-04-06 15:28] VITALS: BP 94/53
[2019-04-06] MEDS: MONTELUKAST 10 MG (SINGULAIR) TAB PO SCH (20:32)
[2019-04-07 00:24] VITALS: BP 110/58
[2019-04-07] MEDS: RT-ALBUTEROL/IPRATROPIUM 3 ML (DUONEB) VIAL INH SCH ×3 (02:20→14:20)
[2019-04-07] MEDS: CEFEPIME 1,000 MG/SWFI 10 ML IV PUSH IV SCH ×4 (02:29→07:59)
[2019-04-07 05:00] LABS: BASOPHILS % (AUTO) 0 % (0-10); EOSINOPHILS % (AUTO) 0 % (0-10); HEMATOCRIT 35 % (40-54); HEMOGLOBIN 11.8 G/DL (13.3-17.7); LYMPHOCYTES # (AUTO) 1.4 X 10^3 (1.0-4.0); LYMPHOCYTES % (AUTO) 8 % (12-44); MEAN CORPUSCULAR HEMOGLOBIN 30 PG (25-34); MEAN CORPUSCULAR HGB CONC 34 G/DL (32-36); MEAN CORPUSCULAR VOLUME 88 FL (80-99); MONOCYTES % (AUTO) 6 % (0-12); NEUTROPHILS # (AUTO) 14.1 X 10^3 (1.8-7.8); NEUTROPHILS % (AUTO) 85 % (42-75); PLATELET COUNT 177 10^3/uL (130-400); RED CELL DISTRIBUTION WIDTH 13.6 % (10.0-14.5); WHITE BLOOD COUNT 16.5 10^3/uL (4.3-11.0)
[2019-04-07 05:20] LABS: BUN/CREATININE RATIO 22; CALCIUM 8.7 MG/DL (8.5-10.1); CARBON DIOXIDE 26 MMOL/L (21-32); CHLORIDE 107 MMOL/L (98-107); CREATININE SERUM 0.77 MG/DL (0.60-1.30); GFR ESTIMATED > 60; GLUCOSE 112 MG/DL (70-105); MAGNESIUM 1.8 MG/DL (1.8-2.4); PHOSPHORUS 2.1 MG/DL (2.3-4.7); SODIUM 139 MMOL/L (135-145)
[2019-04-07] MEDS: predniSONE 20 MG TAB PO SCH (05:53)
--- NOTE | 2019-04-07 06:10 | Pulmonary Progress Note ---
Subjective Time Seen by a Provider: 08:07 Subjective/Events-last exam Pt is doing better. He is currently on RA. Sepsis Event Evaluation Height, Weight, BMI Height: 6'1.00" Weight: 146lbs. 6.0oz. 66.910091cq; 17.2 BMI Method:Stated Focused Exam Lactate Level 04/04/19 10:34: Lactic Acid Level 1.15 Exam Exam Vital Signs Date Time Temp Pulse Resp B/P (MAP) Pulse Ox O2 Delivery O2 Flow Rate FiO2 04/07/19 02:21 94 Room Air 04/07/19 00:24 99.1 76 20 110/58 (75) 96 Room Air 04/06/19 22:07 93 Room Air 04/06/19 22:00 Room Air 04/06/19 21:00 Room Air 04/06/19 18:42 94 Room Air 04/06/19 15:28 98.4 80 20 94/53 (67) 94 Room Air 04/06/19 14:34 93 Room Air 04/06/19 10:47 94 Nasal Cannula 1.00 04/06/19 08:14 Nasal Cannula 1.00 04/06/19 07:26 98.6 80 20 98/55 (69) 96 Nasal Cannula 1.00 04/06/19 06:31 98 Nasal Cannula 2.00 I & O 04/07/19 07:00 Intake Total 4698 ml Output Total 2500 ml Balance 2198 ml Height & Weight Height: 6'1.00" Weight: 146lbs. 6.0oz. 66.598863vx; 17.2 BMI Method:Stated General Appearance: No Apparent Distress, WD/WN HEENT: PERRL/EOMI, Pharynx Normal Neck: Non Tender, Supple Respiratory: Accessory Muscle Use, Decreased Breath Sounds Cardiovascular: Normal Peripheral Pulses, Tachycardia Capillary Refill: Less Than 3 Seconds Gastrointestinal: normal bowel sounds, non tender, soft Extremity: Normal Range of Motion, Non Tender Neurologic/Psychiatric: Alert, Oriented x3 Skin: Normal Color, Warm/Dry Lymphatic: No Adenopathy Results Lab Laboratory Tests 04/06/19 04:30 04/07/19 04:44 Assessment/Plan Assessment/Plan COPDAE with hypoxia -Continue Duonebs, - prednisone 20mg -Oxygen -MRSA swab - is neg -CT of chest - reviewed -ABG C02 is 44 Pneumonia with sepsis (not severe sepsis) -Cefepime change to Omnicef -Otero cultures - UA - is neg Small bilateral pleural effusions -D/C IVF -Check BNP MARKO TINOCO DO April 07, 2019 06:10
[2019-04-07] MEDS: LORATADINE (CLARITIN) 10 MG TAB PO SCH (07:58)
[2019-04-07 08:00] VITALS: BP 116/65
--- NOTE | 2019-04-07 08:02 | Diagnostic Imaging Report ---
INDICATION: Dyspnea. Frontal chest obtained at 4:00 a.m. and compared to 04/06/2019. FINDINGS: Heart and mediastinal silhouette are normal in appearance. There is COPD change with chronic interstitial disease. There appear to be minimal bilateral pleural effusions. There is no new consolidation. IMPRESSION: COPD changes and bilateral chronic interstitial disease. There are minimal bilateral pleural effusions. There is no definite new consolidation. There are old right-sided rib fractures noted. Dictated by: Dictated on workstation # [id number]
[2019-04-07] MEDS ORDERED: CEFDINIR 300 MG (OMNICEF) CAP PO SCH (09:00)
--- NOTE | 2019-04-07 14:11 | NUR ---
PATIENT WAS WALKED FOR 6 MIN. OXYGEN SAT NEVER DROPED BELOW 91% PATIENT DOES NOT QUALIFY FOR HOME OXYGEN Addendum: 04/07/19 at 1411 by FAUSTINA MCKENZIE RT Amended: Links added.
[2019-04-07] MEDS ORDERED: PRED10TA22 PO (14:53)
[2019-04-07] MEDS ORDERED: CEFD300C3 PO (14:53)
--- NOTE | 2019-04-07 14:54 | Discharge Instructions ---
Discharge [facility] Discharge Medications New, Converted or Re-Newed RX: Transmitted to Pharmacy New Medications: Cefdinir (Cefdinir) 300 Mg Capsule 300 MG PO BID, #14 CAP 0 Refills Prednisone (Prednisone) 10 Mg Tab.ds.pk 10 MG PO DAILY, #21 EA Take 6 tabs(60mg)daily,decrease by 1 tab(10MG)daily. Continued Medications: Albuterol Sulfate (Ventolin Hfa) 18 Gm Hfa.aer.ad 2 PUFF INH Q4H PRN for SHORTNESS OF BREATH, INHALER Budesonide/Formoterol Fumarate (Symbicort 80-4.5 Mcg Inhaler) 10.2 Gm Hfa.aer.ad 2 PUFF INH BID, INHALER Patient Instructions Goal/Follow Up Appt: Follow up with Gurinder Rocha APRN at [facility] in [place] on April 12 at 11:40 am. Return to [facility] For: Fever, worsening shortness of breath, inability to keep down medications Activity & Diet Activity as Tolerated: Yes Copy Copies To 1: CHARLY Rolon BETHANY N MD April 07, 2019 14:54
--- NOTE | 2019-04-07 17:09 | Discharge Summary ---
Diagnosis/Chief Complaint Date of Admission April 04, 2019 at 13:30 Date of Discharge April 07, 2019 at 16:10 Admission Diagnosis Admission Diagnosis Severe sepsis Pneumonia COPD exacerbation Discharge Diagnosis See problem list Problems/Diagnosis: (1) Severe sepsis Assessment & Plan: Suspected secondary to pneumonia with leukocytosis and hypotension. WBC much improved this am. Continue cefepime. IVF at 150, BP improved. 04/06 resolved, BP improved overall. WBC increased but was started on steroids. Status: Resolved Resolution Date/Time: 04/05/19 @ 16:31 (2) Pneumonia Assessment & Plan: On cefepime. CT chest 04/05 with bilateral lower infiltrates and COPD findings, no masses. Discharged on cefdinir. Qualifiers: Qualified Codes: J18.9 - Pneumonia, unspecified organism Status: Acute (3) COPD exacerbation Assessment & Plan: IV solumedrol, duonebs. Dr. Guajardo consulted, appreciate recommendations. Discharged on prednisone taper, not requiring supplemental oxygen at time of d/c. Status: Acute (4) COPD (chronic obstructive pulmonary disease) Status: Chronic (5) Subclinical hyperthyroidism Assessment & Plan: Follow up outpatient. Status: Acute Chief Complaint/HPI Chief Complaint/HPI Starting Wednesday night had severe shortness of breath and felt warm, had feeling of knot in his chest. Denies cough. Does not usually use oxygen. Discharge Summary-Simple/Stand Consultations Dr. Guajardo/Pulmonology Discharge Physical Examination Allergies: Coded Allergies: No Known Drug Allergies (Unverified , 04/04/19) Vitals & I&Os Vital Sign - Last 12Hours Date Time Temp Pulse Resp B/P (MAP) Pulse Ox O2 Delivery O2 Flow Rate FiO2 04/07/19 16:08 04/07/19 14:21 92 Room Air 04/07/19 08:00 98.8 72 18 04/06/19 10:47 1.00 Intake and Output 04/07/19 00:00 Intake Total 4138 ml Output Total 1450 ml Balance 2688 ml General Appearance: Alert, No Acute Distress Respiratory: Clear to Auscultation, Normal Air Movement Cardiovascular: Regular Rate, No Murmurs Neuro: Normal Speech Psych/Mental Status: Mood NL Hospital Course See final discharge diagnosis. 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 No other significant finding. CT chest 04/05: DRAFT IMPRESSION: Emphysematous changes, as described. There are some infiltrates of the bilateral lower lobes as well as trace bilateral pleural effusions. Discharge Instructions to patient/family Please see electronic discharge instructions given to patient. Discharge Medications Reviewed and agree with Discharge Medication list on patient's Discharge Instruction sheet Clinical Quality Measures DVT/VTE Risk/Contraindication: Risk Factor Score Per Nursin RFS Level Per Nursing on Admit: 4+=Very High Copy Copies To 1: CHARLY Rolon BETHANY N MD April 07, 2019 17:09
== END 2019-04-07 16:10 | disposition home or self-care (01) | DRG 871 ==
LOC: ER 10:38 → ICU 13:30 → 4TH 18:40
PROVIDERS: ADMIT Family Medicine; ATTEND Family Medicine
DX: A41.9 Sepsis, unspecified organism (principal); R65.20 Severe sepsis without septic shock; J18.9 Pneumonia, unspecified organism; J96.00 Acute respiratory failure, unspecified whether with hypoxia or hypercapnia; J90 Pleural effusion, not elsewhere classified; J43.9 Emphysema, unspecified; E05.90 Thyrotoxicosis, unspecified without thyrotoxic crisis or storm; F17.210 Nicotine dependence, cigarettes, uncomplicated
CPT/HCPCS: 36415; 36600; 71045; 71260; 80048; 80053; 81000; 82805; 83605; 83735; 83880; 84100; 84439; 84443; 85007; 85025; 85027; 85610; 85730; 87040; 87081; 87088; 94640; 94760; 94761; 96361; 96365; 96375; 99291